=== PATIENT | female | born 1965 | race Asian ===

== ENCOUNTER 2024-03-08 10:26 | Outpatient (CLI) | payer OTHER, SELFPAY ==
--- NOTE | 2024-03-08 11:00 | NEURO_ITS ---
Impression: # Non-diabetic complains of right leg pain. # Normal Nerve Conduction Study with normal and symmetrical F-waves. # Normal needle/EMG exam. # Clinical correlation recommended. Nerve Conduction Studies Anti Sensory Summary Table Stim Site NR Peak (ms) P-T Amp (?V) Site1 Site2 Delta-P (ms) Dist (cm) Canelo (m/s) Left Sup Fibular Anti Sensory (Ant Lat Mall) 14 cm 3.8 7.8 14 cm Ant Lat Mall 3.8 16.0 42 Right Sup Fibular Anti Sensory (Ant Lat Mall) 14 cm 3.2 9.2 14 cm Ant Lat Mall 3.2 16.0 50 Left Sural Anti Sensory (Lat Mall) Calf 3.8 28.8 Calf Lat Mall 3.8 16.0 42 Right Sural Anti Sensory (Lat Mall) Calf 3.7 12.1 Calf Lat Mall 3.7 16.0 43 Motor Summary Table Stim Site NR Onset (ms) O-P Amp (mV) Site1 Site2 Delta-0 (ms) Dist (cm) Canelo (m/s) Left Peroneal Motor (Vastus Med) Ankle 3.8 3.0 Popit Ankle 8.1 38.0 47 Popit 11.9 2.4 Right Peroneal Motor (Vastus Med) Ankle 3.4 6.9 Popit Ankle 8.4 40.0 48 Popit 11.8 5.2 Left Tibial Motor (Abd Conde Brev) Ankle 3.7 2.5 Knee Ankle 8.3 40.0 48 Knee 12.0 2.0 Right Tibial Motor (Abd Conde Brev) Ankle 3.8 3.0 Knee Ankle 9.2 40.0 43 Knee 13.0 2.0 F Wave Studies NR F-Lat (ms) L-R F-Lat (ms) Left Peroneal (Mrkrs) (EDB) 52.19 0.15 Right Peroneal (Mrkrs) (EDB) 52.34 0.15 Left Tibial (Mrkrs) (Abd Hallucis) 51.23 0.35 Right Tibial (Mrkrs) (Abd Hallucis) 51.58 0.35 EMG Side Muscle Nerve Root Ins Act Fibs Amp Dur Recrt Comment Right AntTibialis Dp Br Fibular L4-5 Nml Nml Nml Nml Nml Right Gastroc Tibial S1-2 Nml Nml Nml Nml Nml Right Fibularis Long Sup Br Fibular L5-S1 Nml Nml Nml Nml Nml Right Flex Dig Long Tibial L5-S2 Nml Nml Nml Nml Nml Right Ext Dig Brev Dp Br Fibular L5, S1 Nml Nml Nml Nml Nml Right QuadratusFem QuadFemoris L4-5, S1 Nml Nml Nml Nml Nml Left AntTibialis Dp Br Fibular L4-5 Nml Nml Nml Nml Nml Left Gastroc Tibial S1-2 Nml Nml Nml Nml Nml Left Fibularis Long Sup Br Fibular L5-S1 Nml Nml Nml Nml Nml Left Flex Dig Long Tibial L5-S2 Nml Nml Nml Nml Nml Left Ext Dig Brev Dp Br Fibular L5, S1 Nml Nml Nml Nml Nml Left QuadratusFem QuadFemoris L4-5, S1 Nml Nml Nml Nml Nml MTDD
== END 2024-03-08 10:27 | disposition home or self-care (01) ==
LOC: ANHNEURO 10:28
PROVIDERS: Visit Provider Internal Medicine
DX: G62.9 Polyneuropathy, unspecified (principal); E03.9 Hypothyroidism, unspecified; I10 Essential (primary) hypertension; E11.9 Type 2 diabetes mellitus without complications; G47.30 Sleep apnea, unspecified; G43.909 Migraine, unspecified, not intractable, without status migrainosus; N20.0 Calculus of kidney; M54.30 Sciatica, unspecified side; E66.9 Obesity, unspecified; H52.4 Presbyopia
CPT/HCPCS: 95886; 95910

== ENCOUNTER 2024-09-14 00:28 | Day surgery (SDC) | payer OTHER, SELFPAY ==
[2024-09-09 12:03] VITALS: BMI 34.9
--- NOTE | 2024-09-09 12:22 | PC.NURSE ---
Report to hospital entrance 7 to the right of the green pavilion located off [facility] by the [address]'s parking, at time _0600_ on date _[id number]_. Planned Procedure Time: _0730_.? Time changes happen often and if your time is changed the preop area will call you the afternoon before. - You and your visitor will be asked to self-screen and do not enter if you have any COVID symptoms. Please call surgeon if you need to reschedule. - A mask is optional within the hospital at this time. Patients may have clear liquids (water, carbonated beverages, clear teas, apple juice) until 3 hours prior to surgery with a maximum of 20 ounces. - No food from midnight until time of surgery and no smoking, or chewing tobacco (or any form of nicotine). No chewing gum, candy or mints. Take only the following medications with a SIP of water on the morning of surgery: __Fluticasone/Salmeterol inhaler, Gabapentin, Levothyroxine, Methenamine, Verapamil and if needed may use albuterol. If taking antibiotic may take it also.___ DO NOT STOP ANY OF YOUR OTHER PRESCRIPTION MEDICATIONS PRIOR TO SURGERY EXCEPT THE FOLLOWING Hold all vitamins and supplements for 3 days per anesthesiologist. Medications to discontinue per physician Date to take last dose Please no make-up, nail sinhala, hairspray, perfume, deodorant, or body powder the day of surgery.? No jewelry (including any body piercings) or valuables the day of surgery, leave them at home.? Please take a shower or bath the night before, or the morning of, surgery with an antibacterial soap.? Wear comfortable, loose fitting clothing. - Jewelry must be removed prior to entering the operating room.? Rings and piercings that are not removed may be cut off. - The hospital will not accept responsibility for valuables.? - Please leave all valuables, including medications, at home the day of surgery. If you are going home after surgery, a licensed line haul truck driver must drive you home.? - NO public transportation without another adult if you receive anesthesia. - We recommend that an adult stay with you for 24 hours following discharge. - We also recommend that you do not drive, make important decision, drink alcoholic beverages, or take any drugs that were not prescribed by your health care provider for at least 24 hours after your discharge time. Follow any additional instructions given to you from your surgeon. Telephone instructions given to __Rachelle Jefferson___and asked if any additional questions and then verbalized understanding. Patient advised to call surgeon office or pre surgery nurse liaison [phone] if any additional questions.
[2024-09-14 06:30] VITALS: BP 107/75; PULSE 57; RESP 16; TEMP 36.1; O2SAT 95
[2024-09-14] MEDS: LACTATED RINGERS 1,000 ML 30 ML IV CONT (06:30)
[2024-09-14 07:15] LABS: Glucose Point of Care 103 mg/dl (65-105)
--- NOTE | 2024-09-14 07:18 | WPDHPUPDATE1 ---
History and Physical Update Update Date/Time: 09/14/24 07:18 History and Physical has been reviewed, including an updated exam of the patient. There are NO changes in the patient's condition. Risks, benefits, and alternatives have been discussed and questions answered. Patient agrees to proceed with procedure. Procedure: Hysteroscopy dilation and curettage and removal of endometrial lesion if present.
[2024-09-14 07:31] LABS: Anion Gap 7 mmol/L (4-12); Blood Urea Nitrogen 14 mg/dL (7-17); Calcium 8.7 mg/dL (8.4-10.2); Carbon Dioxide 25 mmol/L (22-30); Chloride 109 mmol/L (98-107); Estimated CRCL calculation 90 ml/min; Estimated Glomerular Filt Rate > 60; Glucose 104 mg/dL (65-110); Potassium 3.9 mmol/L (3.4-5.0); Sodium 141 mmol/L (137-145)
[2024-09-14] MEDS: ACETAMINOPHEN 500 MG TABLET 1000 MG PO (07:33)
[2024-09-14] MEDS: LIDOCAINE 1% LOCAL INJ 10 ML VIAL INFILTRATE (07:38)
[2024-09-14] MEDS: ceFAZolin 2 GM/D5W 50 ML 2 GM/50 ML BAG IVPB (07:39)
--- NOTE | 2024-09-14 07:43 | S_PTH ---
PATIENT: Callie Muhammad LOC: [facility] U#:[id number] AGE/SX: 59/F ROOM: RE09/14/[address]: Herb Navarrete MD : 1965 BED: DIS: 09/14/2024 SPEC #: [id number] RECD: 09/14/24 09:53 STATUS: HERBER REQ #: [id number] ARSLAN: 09/14/24 07:[address]: Herb Navarrete DEPT: [facility] Surgical RECD BY: Cata Reddy ENTERED: 09/14/24 09:53 SP TYPE: Surgical OTHR DR: UNKNOWN,DOCTOR Tissues: A - Endometrial Curettings Procedures: Hematoxylin and Eosin Stain Gross and Microscopic Level 4
[2024-09-14] MEDS: KETOROLAC 15 MG/ML VIAL (*BKC) IV PUSH (07:45)
--- NOTE | 2024-09-14 07:50 | W.PM.PROC2 ---
Procedure Note - Detailed Date of Procedure 09/14/24 Pre-op Diagnosis Post Menopausal Bleeding Endometrial polyp Post-op Diagnosis Same Procedure Performed Hysteroscopy with dilation and curettage and removal of endometrial polyp lesion Surgeon Herb Navarrete MD Anesthesia MAC and Local Indications Postmenopausal bleeding,endometrial polyp Findings uterus sound to 7.5 cm, large endometrial polyp, completely removed, the rest of cavity atrophic Description of Procedure After informed consent was obtained patient was taken to the operating room and adequate IV sedation was administered. Attention was turned to the vagina. Speculum was inserted. Single-tooth tenaculum placed on the anterior lip of the cervix.1% lidocaine was injected at the cervical vaginal interface at the 2,5, 8 and 10 position. The uterus was sounded to 7.5 cm. The cervix was dilated to an 6 Siddiqui dilator. The hysteroscope was inserted into the cavity. The findings were the endometrial polyp. The Aveta instrument was attached. The polyp was completely removed with the instrument. The hysteroscope was removed. A curettage was performed with minimal tissue. The hysteroscope was removed the single-tooth tenaculum was removed hemostasis was noted at the tenaculum site. Sponge count correct. The patient taken to recovery in stable condition. Estimated Blood Loss 5 Drains No Packing No Pathology Yes ( Endometrial curettings and shavings) Complications No immediate complications Condition Stable Disposition Same day [facility] Billing Surgery - Charge Forward: Surgery Billing
[2024-09-14 07:54] VITALS: BP 95/61; PULSE 65; RESP 15; O2SAT 99
[2024-09-14 08:01] LABS: Glucose Point of Care 98 mg/dl (65-105)
[2024-09-14 08:15] VITALS: BP 103/65; PULSE 56; RESP 16; O2SAT 98
[2024-09-14 08:45] VITALS: BP 110/68; PULSE 63; RESP 16
== END 2024-09-14 08:58 | disposition home or self-care (01) ==
PROVIDERS: Anesthesiology; Visit Provider Obstetrics & Gynecology
PROC: 0U5B8ZZ Destruction of Endometrium, Via Natural or Artificial Opening Endoscopic (ICD-10-PCS; CPT 58563; principal; 2024-09-14 07:30)
DX: N84.0 Polyp of corpus uteri (principal); E03.9 Hypothyroidism, unspecified; I10 Essential (primary) hypertension; J44.9 Chronic obstructive pulmonary disease, unspecified; E11.9 Type 2 diabetes mellitus without complications; G47.30 Sleep apnea, unspecified; M12.9 Arthropathy, unspecified; Z79.51 Long term (current) use of inhaled steroids; Z79.84 Long term (current) use of oral hypoglycemic drugs; Z79.85 Long-term (current) use of injectable non-insulin antidiabetic drugs; Z98.890 Other specified postprocedural states; Z98.51 Tubal ligation status; Z87.442 Personal history of urinary calculi; Z82.49 Family history of ischemic heart disease and other diseases of the circulatory system
CPT/HCPCS: 58558; 36415; 80048; 82948; 88305; A9270; J0690; J1885; J2003; J2250; J2704; J3010; J7120